=== PATIENT | female | born 1975 | race African-American/Black ===

== ENCOUNTER 2023-07-08 14:38 | Emergency (ER) | payer OTHER, SELFPAY ==
--- NOTE | ~2023-07-08 | CT_ITS ---
EXAMINATION: CT lumbar spine wo con DATE: 07/08/2023 16:51 INDICATION: Low back pain. Lumbar radicular pain. TECHNIQUE: Computed tomography (CT) of the lumbar spine was performed without intravenous contrast. A utomated exposure control and iterative reconstruction technique were employed. The dose-length produ ct was 571.87 mGy-cm. COMPARISON: None FINDINGS: There is 6 degrees dextrocurvature of thoracolumbar spine. Vertebral body heights are asya l. Intervertebral disc heights are normal. The following disc levels are specifically discussed: L1-L2: The disc is bulging. There is mild bilateral facet joint osteoarthritis. There is no neural fo raminal stenosis. There is mild central canal stenosis. L2-L3: The disc is bulging. There is mild bilateral facet joint osteoarthritis. There is mild bilater al neural foraminal stenosis. There is mild central canal stenosis. L3-L4: The disc is bulging. There is mild bilateral facet joint osteoarthritis. There is mild lateral neural foraminal stenosis. There is mild central canal stenosis. L4-L5: The disc is bulging. There is moderate right and mild left facet joint osteoarthritis. There i s mild bilateral neural foraminal stenosis. There is mild central canal stenosis. L5-S1: The disc is bulging. There is moderate bilateral facet joint osteoarthritis. There is mild rig ht neural foraminal stenosis. There is mild central canal stenosis. IMPRESSION: 1. Mild lumbar spondylosis. Reviewed, dictated and finalized at location E. IMPRESSION: 1. Mild lumbar spondylosis.
--- NOTE | ~2023-07-08 | CT_ITS ---
EXAMINATION: CT cervical spine wo con DATE: 07/08/2023 16:51 INDICATION: Neck pain TECHNIQUE: Computed tomography (CT) of the cervical spine was performed without intravenous contrast. Automated exposure control and iterative reconstruction technique were employed. The dose-length pro duct was 159.72 mGy-cm. COMPARISON: None FINDINGS: 10 degrees cervicothoracic dextrocurvature. Sagittal alignment is normal. Cervical vertebral body and disc heights are normal. Mild disc height loss at T2-T3 and T3-T4. Moderate right-sided and mild lef t-sided facet osteoarthritis at C7-T1. Minimal to mild facet osteoarthritis at a few of the more ceph alad levels. There is also minimal to mild cervical uncovertebral osteoarthritis. Small disc bulges r esulting in minimal central canal stenosis at C4-C5 and C5-C6. No neural foraminal stenosis. IMPRESSION: 1. 10 degrees cervicothoracic dextrocurvature with minimal cervical spondylosis. Reviewed, dictated and finalized at location A. IMPRESSION: 1. 10 degrees cervicothoracic dextrocurvature with minimal cervical spondylosis .
[2023-07-08 14:40] VITALS: BP 122/42; PULSE 80; RESP 16; TEMP 36.2; O2SAT 100
[2023-07-08 16:59] LABS: Appearance Urine Clear (Clear); Bilirubin Urine Negative (Negative); Blood Urine Negative (Negative); Color Urine Dark Yellow (Yellow); Glucose Urine UA Negative (Negative); Ketones Urine Trace mg/dL (Negative); Leukocyte Esterase Ur Negative LEU/UL (Negative); Nitrate Urine Negative (Negative); Protein Urine Negative (Negative); pH Urine 5.5 (5.0-9.0)
[2023-07-08 17:03] LABS: Add Urine Microscopic? NO; Specific Grav Ur 1.034 (1.001-1.035)
--- NOTE | 2023-07-08 17:15 | ED_ITS ---
HPI - Back Pain/Injury General Chief Complaint: Back Pain/Injury Stated Complaint: back pain Time Seen by Provider: 07/08/23 16:11 Source: patient Mode of arrival: ambulatory Limitations: no limitations History of Present Illness HPI Narrative: 47-year-old status post gastric bypass several years ago here with a complains of back pain. Patient states the pain at times is in the neck at times in the midback and at times in the lower back. She denies any trauma. Patient states that pain gets worse with ambulation. She denies any bladder or bowel incontinence. No history of fever or chills few MD elicited complaint: back pain Pertinent past history: prior back pain Onset (ago): unknown Timing: intermittent Severity: moderate Similar Symptoms Previously: Yes Quality: aching Location: lumbar spine, thoracic spine and sacrum Radiation: left upper leg and right upper leg Exacerbating factors: none Relieving factors: none Associated symptoms: denies other symptoms Review of Systems Review of Systems: All systems reviewed & are unremarkable except as noted in HPI and below Constitutional: Constitutional: Reports no additional constitutional complaints Eyes: Eyes: Reports no additional eye complaints ENT: Reports system reviewed and no additional complaints, except as documented Cardiovascular: Cardiovascular: Reports no additional cardiovascular complaints Gastrointestinal: Gastrointestinal: Reports no additional gastrointestinal complaints Musculoskeletal: Musculoskeletal: Reports as per HPI Integumentary/Breasts: Skin/Breast: Reports system reviewed and no additional complaints, except as docu Psychiatric: Psychiatric: Reports no additional psychiatric complaints Exam Narrative: GENERAL: Well-appearing, well-nourished, and in no acute distress. HEAD: Normocephalic, atraumatic. EYES: PERRLA and EOMI. ENT: Nares clear, no rhinorrhea or epistaxis. Mucous membranes moist. NECK: Supple. CHEST: Clear to auscultation. No respiratory distress. HEART: Regular rate and rhythm. No murmur heard. Normal peripheral pulses. ABDOMEN: Soft, nontender, nondistended, normal active bowel sounds. EXTREMITIES: Normal range of motion. No edema. SLR negative on both sides SKIN: Warm, dry, no rash. NEURO: No focal deficits. Alert and oriented x3. PSYCH: Normal mood and affect. Course Course Emergency Course: Notified patient about her CT findings. Advised her to do physical therapy, take medication as prescribed, follow-up with the primary doctor Vital Signs Vital signs: Vital Signs Temperature 36.2 C L 07/08/23 14:40 Pulse Rate 80 07/08/23 14:40 Respiratory Rate 16 07/08/23 14:40 Blood Pressure 122/42 L 07/08/23 14:40 Pulse Oximetry 100 07/08/23 14:40 Oxygen Delivery Room Air 07/08/23 14:40 Temperature 36.2 C L 07/08/23 14:40 Pulse Rate 80 07/08/23 14:40 Respiratory Rate 16 07/08/23 14:40 Blood Pressure 122/42 L 07/08/23 14:40 Pulse Oximetry 100 07/08/23 14:40 Oxygen Delivery Room Air 07/08/23 14:40 MDM - Back Pain/Injury Differential Diagnosis Differential diagnosis: Likely lumbar radiculopathy and discitis Lab Data Attestation: I reviewed the patient's lab results. Labs: Lab Results 07/08/23 Range/Units 16:53 Urine Color Dark yellow (Yellow) Urine Appearance Clear (Clear) Urine pH 5.5 (5.0-9.0) Ur Specific [place] 1.034 (1.001-1.035) Urine Protein Negative (Negative) mg/dL Urine Glucose (UA) Negative (Negative) mg/dL Urine Ketones Trace H (Negative) mg/dL Ur Blood (Man) Negative (Negative) Urine Nitrate Negative (Negative) Urine Bilirubin Negative (Negative) Urine Urobilinogen 1.0 (<2.0) mg/dL Leukocyte Esterase Rfl Negative (Negative) MARIAMA/UL Imaging Data Radiologist's impression: ITS Impressions Cervical Spine CT 07/08/23 16:52 IMPRESSION: 1. 10 degrees cervicothoracic dextrocurvature with minimal cervical spondylosis. Lumbar Spine CT 07/08/23 16:54 IMPRESSION: 1. Mild lumbar spondylosis. Discharge Plan Discharge Clinical Impression: Back pain Qualifiers: Back pain location: back pain in unspecified location Chronicity: unspecified Back pain laterality: midline Qualified Code(s): M54.89 - Other dorsalgia Patient Disposition: Home, Self-Care Condition: Stable Instructions: Back Pain (ED) Prescriptions: New tramadol 50 mg tablet 50 mg PO Q6H PRN (Reason: pain) Qty: 20 0RF Follow-up/Referrals: Ion Tyler MD [Physician] - UNKNOWN,DOCTOR [Primary Care Provider] - Time of Disposition: 17:18
== END 2023-07-08 17:31 | disposition home or self-care (01) ==
PROVIDERS: Emergency Provider Family Medicine
DX: M54.50 Low back pain, unspecified (principal); M54.2 Cervicalgia; M54.6 Pain in thoracic spine; Z98.84 Bariatric surgery status; M47.812 Spondylosis without myelopathy or radiculopathy, cervical region; M47.816 Spondylosis without myelopathy or radiculopathy, lumbar region
CPT/HCPCS: 72125; 72131; 81003; 99284

== ENCOUNTER 2023-08-12 12:48 | Emergency (ER) | payer OTHER, SELFPAY ==
[2023-08-12 12:50] VITALS: BP 130/76; PULSE 70; RESP 16; TEMP 36.5; O2SAT 100
--- NOTE | 2023-08-12 13:47 | ED.GENADULT ---
HPI - General Adult General Chief complaint: Extremity Injury, Upper Stated complaint: L shoulder and neck pain - wants pain management Time Seen by Provider: 08/12/23 13:10 History of Present Illness HPI narrative: 48-year-old with a history of gastric bypass presents to the ER with complaints of left shoulder and neck pain which has been ongoing for several months. Patient was seen here in the ER for the same in the past had a CT scan of her cervical spine which shows mild disc herniation but no neuroforaminal stenosis. She also mentioned that she has seen a neurosurgeon at [facility] few days ago and was advised to follow-up with orthopedics for her chronic neck and shoulder pain. 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 Onset (ago): month(s) Location: neck Radiation: extremity (Left) Severity: mild Quality: aching Pain Consistency: constant Relieving factors: none Exacerbating factors: none Associated symptoms: denies other symptoms Related Data Allergies Allergy/AdvReac Type Severity Reaction Status Date / Time No Known Allergies Allergy Verified 08/12/23 12:52 Review of Systems Review of Systems: All systems reviewed & are unremarkable except as noted in HPI and below Constitutional: Constitutional: Reports no additional constitutional complaints Eyes: Eyes: Reports no additional eye complaints ENT: Reports system reviewed and no additional complaints, except as documented Cardiovascular: Cardiovascular: Reports no additional cardiovascular complaints Respiratory: Respiratory: Reports no additional respiratory complaints Gastrointestinal: Gastrointestinal: Reports no additional gastrointestinal complaints Musculoskeletal: Musculoskeletal: Reports as per HPI Exam Narrative: GENERAL: Well-appearing, well-nourished, and in no acute distress. HEAD: Normocephalic, atraumatic. EYES: PERRLA and EOMI. ENT: Nares clear, no rhinorrhea or epistaxis. Mucous membranes moist. NECK: Supple. CHEST: Clear to auscultation. No respiratory distress. HEART: Regular rate and rhythm. No murmur heard. Normal peripheral pulses. ABDOMEN: Soft, nontender, nondistended, normal active bowel sounds. EXTREMITIES: Normal range of motion. No edema. SKIN: Warm, dry, no rash. NEURO: No focal deficits. Alert and oriented x3. PSYCH: Normal mood and affect. Course Course Emergency Course: I did review her CT which was done in June. Recommended her to follow with pain management and [place]. Patient states that she a has someone and [facility] which is not quite sure about the name. Patient was agreeable to take gabapentin and muscle relaxer. Vital Signs Vital signs: Vital Signs Temperature 36.5 C 08/12/23 12:50 Pulse Rate 70 08/12/23 12:50 Respiratory Rate 16 08/12/23 12:50 Blood Pressure 130/76 08/12/23 12:50 Pulse Oximetry 100 08/12/23 12:50 Oxygen Delivery Room Air 08/12/23 12:50 Temperature 36.5 C 08/12/23 12:50 Pulse Rate 70 08/12/23 12:50 Respiratory Rate 16 08/12/23 12:50 Blood Pressure 130/76 08/12/23 12:50 Pulse Oximetry 100 08/12/23 12:50 Oxygen Delivery Room Air 08/12/23 12:50 Medical Decision Making Vital Signs Vital Signs: Vital Signs Temperature 36.5 C 08/12/23 12:50 Pulse Rate 70 08/12/23 12:50 Respiratory Rate 16 08/12/23 12:50 Blood Pressure 130/76 08/12/23 12:50 Pulse Oximetry 100 08/12/23 12:50 Oxygen Delivery Room Air 08/12/23 12:50 Temperature 36.5 C 08/12/23 12:50 Pulse Rate 70 08/12/23 12:50 Respiratory Rate 16 08/12/23 12:50 Blood Pressure 130/76 08/12/23 12:50 Pulse Oximetry 100 08/12/23 12:50 Oxygen Delivery Room Air 08/12/23 12:50 Discharge Plan Discharge Clinical Impression: Radicular pain in left arm Patient Disposition: Home, Self-Care Condition: Stable Instructions: Cervical Radiculopathy (ED) Pr
== END 2023-08-12 13:58 | disposition home or self-care (01) ==
PROVIDERS: Emergency Provider Family Medicine; PCP Emergency Medicine
DX: M25.512 Pain in left shoulder (principal); Z98.84 Bariatric surgery status
CPT/HCPCS: 99283

== ENCOUNTER 2023-08-16 16:48 | Outpatient (CLI) | payer OTHER, SELFPAY ==
[2023-08-16 18:17] LABS: Creatinine Urine 28.7 mg/dL
[2023-08-16 18:17] LABS: Rheumatoid Factor < 12.0 IU/ML (<12)
[2023-08-16 18:33] LABS: Free T4 Free Thyroxine 0.69 ng/mL (0.78-2.19); Vitamin D 25 Hydroxy 56.2 ng/mL
[2023-08-16 19:00] LABS: Microalbumin Urine Random < 6.0 mg/L (0-16.7)
[2023-08-16 19:38] LABS: Hemoglobin A1C 4.8 % (<5.7)
[2023-08-16 19:58] LABS: Erythrocyte Sedimentation Rate 9 mm/hr (0-20)
[2023-08-19 12:39] LABS: Anti Nuclear Antibody Pattern Nuclear, Speckled
== END 2023-08-16 16:49 | disposition home or self-care (01) ==
LOC: ANHLAB 16:55
PROVIDERS: PCP Emergency Medicine; Visit Provider Emergency Medicine
DX: M54.10 Radiculopathy, site unspecified (principal)
CPT/HCPCS: 36415; 82043; 82306; 83036; 84439; 84443; 85652; 86038; 86039; 86430

== ENCOUNTER 2023-10-28 15:10 | Emergency (ER) | payer OTHER, SELFPAY ==
--- NOTE | ~2023-10-28 | CT_ITS ---
CT abdomen pelvis w con Ordering provider: Alexander Whelan MD History: 48 years Female with . RLQ pain, fever chills . Comparison: None. Technique: CT abdomen and pelvis with IV and without oral contrast. Automated exposure control and it erative reconstruction technique were employed. The dose-length product was 363.81 mGy-cm. 100 mL Omn ipaque 350 was given IV. Findings: VISUALIZED LOWER CHEST: Normal. UPPER ABDOMINAL ORGANS: Liver: Normal. Gallbladder: Normal. Spleen: Normal. Stomach/duodenum: Normal. Pancreas: Normal. Adrenals: Normal. Kidneys: Normal. PELVIC ORGANS: The bladder is normal. Retroverted uterus. BOWEL AND MESENTERY: Colon: Mild sigmoid diverticulosis without diverticulitis. Appendix is not demonstrated with no defin ite inflammatory changes seen in the right lower quadrant. Small Bowel: Normal. No obstruction. Peritoneum/mesentery: No free air or free fluid. No mesenteric lymphadenopathy. RETROPERITONEUM: Mild atheromatous disease of the abdominal aorta. No retroperitoneal lymphadenopat hy. MUSCULOSKELETAL: Superficial soft tissues: The superficial soft tissues are normal. Bones: Normal spine. Pubic symphysitis. IMPRESSION: 1. No evidence of appendicitis, diverticulitis or intestinal obstruction. Reviewed, dictated and finalized at location A.
[2023-10-28 15:17] VITALS: BP 118/68; PULSE 65; RESP 16; TEMP 36.3; O2SAT 100
--- NOTE | 2023-10-28 15:33 | PC.NURSE ---
attempted to call [employer] Inspector at [phone] about infection control notification. no answer, but left a message. Notified ED charge nurse.
--- NOTE | 2023-10-28 15:59 | ED.ABDPAIN ---
HPI - Abdominal Pain General Chief Complaint: Abdominal Pain Stated Complaint: abd pain to right flank Time Seen by Provider: 10/28/23 15:41 History of Present Illness HPI narrative: This is a 48-year-old female with no significant pertinent past medical history aside from a prior sleeve gastrectomy. Today she presents to the ED for concerns of right lower quadrant abdominal pain, nausea, vomiting, diarrhea. She states she has been having subjective fever and chills at home. All her symptoms started 1 day induration and have been coming and going in waves. No measurable fever at home but she states she was feeling feverish and having sweats prior to arrival. No chest pain, shortness a breath, vaginal bleeding or discharge, no urinary symptoms. No bloody diarrhea or dark tarry stools. She did have recent travel last month but nothing recently. Related Data Allergies Allergy/AdvReac Type Severity Reaction Status Date / Time No Known Allergies Allergy Verified 10/28/23 15:13 Review of Systems Review of Systems: As reviewed above in HPI Exam Narrative: GENERAL: [Well-appearing, well-nourished, and in no acute distress.] HEAD: [Normocephalic, atraumatic.] EYES: [PERRLA and EOMI.] ENT: Nares clear, no rhinorrhea or epistaxis. Mucous membranes moist. NECK: Supple. CHEST: [Clear to auscultation. No respiratory distress.] HEART: [Regular rate and rhythm]. No murmur heard. [Normal peripheral pulses.] ABDOMEN: [Soft, nondistended], tenderness in the right lower quadrant. Negative obturator sign, negative Myrna sign, negative psoas sign, [No rigidity or guarding] EXTREMITIES: Normal range of motion. [No edema.] SKIN: Warm, dry, no rash. NEURO: [No focal deficits]. Alert and oriented [x3.] PSYCH: [Normal mood and affect.] Course Vital Signs Vital signs: Vital Signs Temperature 36.3 C L 10/28/23 15:17 Pulse Rate 65 10/28/23 15:17 Respiratory Rate 16 10/28/23 15:17 Blood Pressure 118/68 10/28/23 15:17 Pulse Oximetry 100 10/28/23 15:17 Temperature 36.3 C L 10/28/23 15:17 Pulse Rate 65 10/28/23 15:17 Respiratory Rate 16 10/28/23 15:17 Blood Pressure 118/68 10/28/23 15:17 Pulse Oximetry 100 10/28/23 15:17 MDM - Abdominal Pain MDM Narrative Medical decision making narrative: This is a 48-year-old female with a past medical history including a sleeve gastrectomy who presents with right lower quadrant pain, subjective fever, chills, myalgias diarrhea. She is presently comfortable in appearance but does have some right lower quadrant tenderness on examination. She has reassuring vital signs with no fever, tachycardia or blood pressure anomalies. Differential diagnosis at this time includes appendicitis versus renal pathology such as a kidney stone. Pancreatitis is possible although she does not have any risk factors aside from obesity causing gallstones. Pain is more localized to the right lower quadrant that this is potentially also cholecystitis. She was treated with morphine, lactated Ringer bolus and laboratory studies were obtained in addition to a CT abdomen pelvis with IV contrast. Patient's workup was very reassuring and she has a negative lactic acid, normal electrolyte profile, no leukocytosis or anemia. Normal renal and hepatic function panel. She was re-evaluated had complete symptomatic resolution was feeling much improved after fluids and pain control. CT scan showed no acute process such as appendicitis, diverticulitis or any intestinal obstruction. No lymphadenopathy. At this time patient was stable for discharge home and will be given prescriptions for continued symptomatic treatment home. She expressed understanding of these instructions and was given return precautions including worsening or recurrent symptomatology. Medical Records Attestation: I reviewed the patient's medical records. Lab Data 10/28/23 16:41 10/28/23 16:41 Labs:
[2023-10-28] MEDS: LACTATED RINGERS 1,000 ML 999 ML IV CONT (16:23)
[2023-10-28] MEDS: ONDANSETRON INJ 4 MG/2 ML VIAL IV PUSH (16:23)
[2023-10-28] MEDS: MORPHINE SULFATE (*CRX) 4 MG/ML INJ IV PUSH (16:23)
[2023-10-28 16:47] LABS: Basophils Percent Auto 0.2 % (0.2-1.2); Eosinophils Absolute Auto 0.1 K/mm3 (0-0.3); Eosinophils Percent Auto 0.7 % (0-4.4); Hematocrit 41.3 % (37.0-47.0); Hemoglobin 13.6 g/dL (12.0-15.0); Immature Granulocyte Absolute 0.01 K/mm3 (0.00-0.031); Immature Granulocyte Percent A 0.1 % (0-0.5); Lymphocytes Absolute Auto 2.15 K/mm3 (0.9-3.2); Lymphocytes Percent Auto 26.7 % (18.3-44.2); Mean Corpuscular HGB Conc 32.9 g/dl (32-36); Mean Corpuscular Hemoglobin 30.6 pg (26-34); Mean Platelet Volume 10.2 fl (7.4-10.4); Monocytes Absolute Auto 0.5 K/mm3 (0.1-0.6); Monocytes Percent Auto 6.7 % (2.6-8.5); Neutrophils Absolute Auto 5.3 K/mm3 (1.3-6.7); Neutrophils Percent Auto 65.6 % (45.5-73.1); Platelet Count Result 216 k/mm3 (150-375); Red Blood Count 4.44 M/mm3 (4.2-5.4); Red Cell Distribution Width 13.1 % (11.5-14.5); White Blood Count 8.1 K/mm3 (4.5-10.0)
[2023-10-28 16:56] LABS: Lactic Acid Reflex 0.6 mmol/L (0.7-2.0)
[2023-10-28 16:57] LABS: Alanine Aminotransferase 14 U/L (6-35); Albumin Level 4.2 g/dL (3.5-5.1); Alkaline Phosphatase 68 U/L (38-126); Anion Gap 8 mmol/L (4-12); Aspartate Amino Transferase 22 U/L (14-36); Bilirubin,Total 0.5 mg/dL (0.2-1.3); Blood Urea Nitrogen 15 mg/dL (7-17); Calcium 9.4 mg/dL (8.4-10.2); Carbon Dioxide 26 mmol/L (22-30); Chloride 106 mmol/L (98-107); Estimated CRCL calculation 75 ml/min; Estimated Glomerular Filt Rate > 60; Glucose 84 mg/dL (65-110); Lipase 76 U/L (23-300); Potassium 3.7 mmol/L (3.4-5.0); Sodium 140 mmol/L (137-145)
[2023-10-28 17:02] LABS: Prothrombin Time 13.1 Seconds (11.1-14.7)
[2023-10-28 17:03] LABS: Partial Thromboplastin Time 28.1 Seconds (22.3-36.8)
[2023-10-28 18:24] VITALS: BP 120/72; PULSE 68; RESP 18; TEMP 36.8; O2SAT 99
--- NOTE | 2023-11-10 13:14 | PC.NURSE ---
LATE ENTRY This note is being entered to document information to the patient's record. The following information was omitted on [10/28/23], by [Evita Forde RN]. LR stopped at 1720
== END 2023-10-28 18:25 | disposition home or self-care (01) ==
PROVIDERS: Emergency Provider Student in an Organized Health Care Education/Training Program; PCP Emergency Medicine
DX: K52.9 Noninfective gastroenteritis and colitis, unspecified (principal); Z98.84 Bariatric surgery status
CPT/HCPCS: 36415; 74177; 80053; 83605; 83690; 85025; 85610; 85730; 96361; 96374; 96375; 99284; J2270; J2405; J7120; Q9967

== ENCOUNTER 2024-02-09 10:44 | Outpatient (CLI) | payer OTHER, SELFPAY ==
--- NOTE | ~2024-02-09 | XR_ITS ---
EXAMINATION: XR sacrum coccyx min 2V DATE: 02/09/2024 11:11 INDICATION: Sacrococcygeal pain. Injury. TECHNIQUE: 3 views of the sacrum and coccyx were obtained. COMPARISON: CT abdomen and pelvis 10/28/2023 FINDINGS: Alignment is normal. No fracture. There is mild lumbar spondylosis. There is mild osteoarth ritis of the sacroiliac joints and hip joints. IMPRESSION: 1. No fracture. Reviewed, dictated and finalized at location A. OR JAVASCRIPT DEVELOPER IMPRESSION: 1. No fracture.
--- NOTE | ~2024-02-09 | US_ITS ---
EXAMINATION: US thyroid DATE: 02/09/2024 11:29 INDICATION: Abnormal thyroid stimulating hormone level. TECHNIQUE: Multiple ultrasound images of the thyroid were obtained. COMPARISON: None. FINDINGS: The right thyroid lobe measures 4.9 x 1.5 x 1.5 cm. The left thyroid lobe measures 4.8 x 1.3 x 1.4 c m. In the right thyroid lobe, there is a 6 mm solid, isoechoic, wider than tall nodule with ill-defi sonia margin without echogenic foci (TI-RADS TR3). In the right thyroid lobe, there is a 4 mm nodule. I n the left thyroid lobe, there is a 4 mm nodule. IMPRESSION: 1. Small thyroid nodules, likely not clinically significant. No follow-up is needed. Reviewed, dictated and finalized at location A. [employer] IMPRESSION: 1. Small thyroid nodules, likely not clinically significant. No follow-up is ne eded.
--- NOTE | ~2024-02-09 | XR_ITS ---
EXAMINATION: XR lumbar spine 2-3V DATE: 02/09/2024 11:10 INDICATION: Low back pain. Injury. Sacrococcygeal pain. TECHNIQUE: 3 views of lumbar spine were obtained. COMPARISON: Lumbar spine CT 07/08/2023. FINDINGS: There is 3 degrees dextrocurvature of lumbar spine. Vertebral body heights and intervertebr al disc heights are normal. There is multilevel [id number] facet joint osteoarthritis. IMPRESSION: 1. Mild lumbar spondylosis. Reviewed, dictated and finalized at location A. IED STATISTICIAN IMPRESSION: 1. Mild lumbar spondylosis.
[2024-02-09 13:16] LABS: Free T4 Free Thyroxine 0.93 ng/mL (0.78-2.19)
[2024-02-13 14:57] LABS: Thyroid Peroxidase Antibodies <1 IU/mL (<9)
== END 2024-02-10 08:22 | disposition home or self-care (01) ==
PROVIDERS: PCP Emergency Medicine; Visit Provider Emergency Medicine
DX: M43.06 Spondylolysis, lumbar region (principal); R94.6 Abnormal results of thyroid function studies; E04.2 Nontoxic multinodular goiter
CPT/HCPCS: 36415; 72100; 72220; 76536; 84439; 84443; 86376